=== PATIENT | female | born 1995 | race Two or more races ===

== ENCOUNTER 2020-02-21 10:53 | Emergency (ER) | payer BC ==
[~2020-02-21] VITALS: Ht 165.1 cm; Wt 86.4 kg
[2020-02-21] MEDS ORDERED: normal saline 1000ML IV soln IV ONE (11:25)
[2020-02-21] MEDS ORDERED: acetaminophen 325mg tablet PO STA (11:25)
[2020-02-21 12:33] LABS: BASOPHILS % (AUTO) 0.4 % (0-1); EOSINOPHILS % (AUTO) 0.3 % (0-6); HEMATOCRIT 41.6 % (35.0-45.0); HEMOGLOBIN 13.8 g/dl (12.0-16.0); LYMPHOCYTES # (AUTO) 1.1 X10'3 (1.1-4.8); LYMPHOCYTES % (AUTO) 24.3 % (21-51); MEAN CORPUSCULAR HEMOGLOBIN 26.7 PG (27.0-31.0); MEAN CORPUSCULAR HGB CONC 33.3 g/dL (33.0-36.5); MEAN CORPUSCULAR VOLUME 80.3 FL (78-98); MEAN PLATELET VOLUME 8.1 FL (7.4-10.4); MONOCYTES # (AUTO) 0.3 X10'3 (0-0.9); MONOCYTES % (AUTO) 7.1 % (2-12); NEUTROPHILS % (AUTO) 67.9 % (42-75); PLATELET COUNT 233 X10'3 (140-440); RED BLOOD COUNT 5.17 X10'6 (4.20-5.60); RED CELL DISTRIBUTION WIDTH 14.1 % (11.5-14.5); WHITE BLOOD COUNT 4.5 X10'3 (4.5-11.0)
[2020-02-21 12:40] VITALS: BP 140/88
[2020-02-21 12:45] LABS: URINE HCG NEGATIVE (NEG)
[2020-02-21 12:48] LABS: ALANINE AMINOTRANSFERASE 57 U/L (12-78); ALBUMIN 3.8 G/DL (3.4-5.0); ALBUMIN/GLOBULIN RATIO 0.9 (1.1-1.5); ALKALINE PHOSPHATASE 115 IU/L (46-116); ANION GAP 10 (8-16); ASPARTATE AMINO TRANSFERASE 36 U/L (10-37); BILIRUBIN,TOTAL 0.3 MG/DL (0.1-1.0); BLOOD UREA NITROGEN 11 MG/DL (7-18); BUN/CREATININE RATIO 13.8 (6.6-38.0); CALCIUM 9.1 MG/DL (8.5-10.1); CHLORIDE 104 MMOL/L (99-107); GLUCOSE 130 MG/DL (70-104); POTASSIUM 3.6 MMOL/L (3.5-5.1); SODIUM 141 MMOL/L (135-145); TOTAL PROTEIN 8.1 G/DL (6.4-8.2); eGFR 87 ML/MIN
[2020-02-21 12:50] LABS: CLARITY,URINE CLEAR (Clear); COLOR,URINE YELLOW (Yellow); GLUCOSE, URINE NEGATIVE (Neg); KETONES,URINE NEGATIVE (Neg); LEUKOCYTE ESTERASE ,URINE NEGATIVE (Neg); NITRITES, URINE NEGATIVE (Neg); OCCULT BLOOD,URINE NEGATIVE (Neg); PROTEIN,URINE 100 mg/dl (Neg); UROBILINOGEN,URINE 0.2 E.U/dL (0.2-1.0)
[2020-02-21 12:54] LABS: UA COLLECTION TYPE CLN CATCH MIDSTREAM
[2020-02-21 12:55] LABS: BACTERIA,URINE FEW /HPF (Neg); MUCUS STRANDS FEW /LPF (Neg); RBC,URINE 0-2 /HPF (0-2); SQUAMOUS EPITHELIAL CELL,UR FEW /LPF (FEW); TRANSITIONAL EPI CELLS,URINE FEW /HPF; WBC,URINE 0-4 /HPF (0-4)
[2020-02-21 12:56] LABS: HYALINE CASTS 0-3 /LPF (NEGATIVE)
[2020-02-21 13:01] LABS: C-REACTIVE PROTEIN 3.05 MG/DL (0.0-0.5); FERRITIN 57 NG/ML (8-252); LACTATE DEHYDROGENASE 249 U/L (81-234); MAGNESIUM 1.8 MG/DL (1.5-2.4)
[2020-02-21] MEDS ORDERED: iohexol 350MG/ML 100ml bottle IV ONE (13:20)
--- NOTE | 2020-02-21 13:27 | NUR ---
PATIENT TO CT SCAN VIA WC
--- NOTE | 2020-02-21 13:38 | NUR ---
back from ctscan
--- NOTE | 2020-02-21 13:46 | NUR ---
WITH PATIENT'S PERMISSION UPDATED HER BROTHER LEXX
[2020-02-21] MEDS ORDERED: ACET-3067 PO (14:07)
== END 2020-02-21 14:32 | disposition home or self-care (01) ==
LOC: ER 10:54
DX: U07.1 COVID-19 (principal); J12.9 Viral pneumonia, unspecified; R05 Cough; J02.9 Acute pharyngitis, unspecified; R51.9 Headache, unspecified; R06.02 Shortness of breath; R53.83 Other fatigue; Z79.899 Other long term (current) drug therapy
CPT/HCPCS: 36415; 71045; 71275; 80053; 81001; 81025; 82728; 83605; 83615; 83735; 84145; 85025; 85379; 85384; 86140; 87040; 93005; 96360; 99285; J7030; Q9967